=== PATIENT | male | born 1990 | race Caucasian/White ===

== ENCOUNTER 2018-06-14 19:40 | Emergency (ER) | payer OTHER ==
[2018-06-14] MEDS: IBUPROFEN 600 MG TAB PO (22:05)
[2018-06-14] MEDS: DIPHTH/TET/ACEL PERTUSS (ADULT) 0.5 ML VIAL IM* (22:07)
== END 2018-06-15 00:20 | disposition left against medical advice (07) ==
LOC: FTE 06-15 00:20
DX: S91.332A Puncture wound without foreign body, left foot, initial encounter (principal); F17.210 Nicotine dependence, cigarettes, uncomplicated; W45.8XXA Other foreign body or object entering through skin, initial encounter; Y92.9 Unspecified place or not applicable; Z23 Encounter for immunization
CPT/HCPCS: 73630; 73630-LT; 90471; 90715; 99283-25